=== PATIENT | female | born 1985 | race Caucasian/White ===

== ENCOUNTER 2016-11-06 16:34 | Emergency (ER) | payer MEDICAID ==
[~2016-11-06] VITALS: Ht 167.6 cm; Wt 75.0 kg
[2016-11-06 16:43] VITALS: Ht 167.6 cm; Wt 75.0 kg
[2016-11-06 19:15] VITALS: BP 111/76; PULSE 76; RESP 20; TEMP 98.3
--- NOTE | 2016-11-06 21:48 | ERD ---
ER Documentation Chief Complaint Date/Time DATE: 11/06/16 TIME: 21:45 Chief Complaint 10 WEEKS ,NO FHT PER ULTRASOUND AT OB OFFICE HPI 31-year-old female patient who is a presents to the ED no significant past medical history and is requesting for a dilatation and curettage. States that her LITIGATION ATTORNEY is Dr. Bryan. Reports that her last menses was on July 15, 2016. States that she was just at [facility] and was diagnosed with a demise. Reports that she has some slight lower abdominal pain that she describes as achy. Rates the pain a 8 out of 10. States that she is nauseous but denies any vomiting. Denies any vaginal bleeding, vaginal discharge, dysuria, urgency, frequency, diarrhea, chest pain, shortness of breath. ROS All systems reviewed and are negative except as per history of present illness. Allergies Allergies: Coded Allergies: No Known Allergy (Unverified , 11/06/16) PMhx/Soc Medical and Surgical Hx: pt denies Medical Hx, pt denies Surgical Hx Hx Alcohol Use: No Hx Substance Use: No Hx Tobacco Use: No Smoking Status: Never smoker Physical Exam Vitals Vital Signs Date Time Temp Pulse Resp B/P Pulse Ox O2 Delivery O2 Flow Rate FiO2 11/06/16 19:15 98.3 76 20 111/76 100 Room Air 11/06/16 16:43 99.2 86 18 117/59 98 Physical Exam Const: [id number], well-nourished. In no acute distress. Head: Atraumatic, normocephalic Eyes: Normal Conjunctiva without injection. No purulent discharge. ENT: Normal external ear, nose. Moist oropharynx without tonsillar exudates. Non -erythematous pharynx. Uvula midline. No drooling. No trismus. Neck: No cervical midline tenderness. Full range of motion. No meningismus. No cervical lymphadenopathy. No JVD. Resp: Clear to auscultation bilaterally. No wheezing, rhonchi, rales, or crackles. No accessory muscle use. No retractions. Cardio: Regular rate and rhythm. No murmurs, rubs or gallops. Abd: Soft, slight right and left lower abdominal tenderness, non distended. Normal bowel sounds. No palpable masses. No rebound tenderness. No guarding. Negative McBurney's point. Negative psoas sign. Negative obturator sign. Skin: No petechiae or rashes Back: No midline tenderness. No CVA tenderness. Ext: No cyanosis, or edema. Neur: Awake and alert. Normal gait. Normal coordination. Psych: Normal Mood and Affect Procedures/MDM 31-year-old female patient with no significant past medical history is a presents to the ED with a diagnosis of demise at [facility]. Patient is afebrile nontoxic appearing. Patient has normal vital signs. Patient is requesting for a dilatation and curettage at this time. Dr. Bryan , patient's LITIGATION ATTORNEY was consulted and he stated that patient can follow-up with the [facility] in [place] or [facility] for further evaluation and treatment. No indication for a full workup at present hospital no indication for a workup at this time. Low suspicion for symptomatic anemia, ectopic , sepsis, PID, appendicitis, ovarian torsion, tubo-ovarian abscess or other emergent conditions. Patient is to return sooner to the ED for any worsening symptoms. Patient's questions were answered. Patient understood and agreed with discharge plan. Departure Diagnosis: Primary Impression: Pelvic pain during Condition: Stable Patient Instructions: Dilation and Curettage (D and C) Referrals: COMMUNITY CLINICS YOU HAVE RECEIVED A MEDICAL SCREENING EXAM AND THE RESULTS INDICATE THAT YOU DO NOT HAVE A CONDITION THAT REQUIRES URGENT TREATMENT IN THE EMERGENCY DEPARTMENT. FURTHER EVALUATION AND TREATMENT OF YOUR CONDITION CAN WAIT UNTIL YOU ARE SEEN IN YOUR DOCTORS OFFICE WITHIN THE NEXT 1-2 DAYS. IT IS YOUR RESPONSIBILITY TO MAKE AN APPOINTMENT FOR FOLOW-UP CARE. IF YOU HAVE A PRIMARY DOCTOR --you should call your primary doctor and schedule an appointment IF YOU DO NOT HAVE A PRIMARY DOCTOR YOU CAN CALL OUR PHYSICIAN REFERRAL HOTLINE AT IF YOU CAN NOT AFFORD TO SEE A PHYSICIAN YOU CAN CHOSE FROM THE FOLLOWING [facility] CLINICS [facility] [address] [facility] [address] [facility]. [facility] [address] [facility] [address] [facility] [address] [facility]. [facility] [address] [facility]. [facility] YOU HAVE RECEIVED A MEDICAL SCREENING EXAM AND THE RESULTS INDICATE THAT YOU DO NOT HAVE A CONDITION THAT REQUIRES URGENT TREATMENT IN THE EMERGENCY DEPARTMENT. FURTHER EVALUATION AND TREATMENT OF YOUR CONDITION CAN WAIT UNTIL YOU ARE SEEN IN YOUR DOCTORS OFFICE WITHIN THE NEXT 1-2 DAYS. IT IS YOUR RESPONSIBILITY TO MAKE AN APPOINTMENT FOR FOLOW-UP CARE. IF YOU HAVE A PRIMARY DOCTOR --you should call your primary doctor and schedule and appointment IF YOU DO NOT HAVE A PRIMARY DOCTOR YOU CAN CALL OUR PHYSICIAN REFERRAL HOTLINE AT . IF YOU CAN NOT AFFORD TO SEE A PHYSICIAN YOU CAN CHOSE FROM THE FOLLOWING [facility] INSTITUTIONS: [facility] [address] [place] [address] [facility] [address] [place] [address] [facility] + [facility] [address] [place] [address] [facility] Hours: 8:00 am - 5:00 pm Additional Instructions: [facility] [id number] [facility] [address], [place] [address] Visite a scott mdico maana para un EXAMEN y seguimiento con los asociados de planificacin familiar o paternidad planificada para la dilatacin y Curretage. Regrese a estas instalaciones si no se mejora zaheer esperbamos o zaheer le dijimos. DAKOTA BRODERICK PA-C Nov 06, 2016 21:48 Regrese a estas instalaciones si no se mejora zaheer esperbamos o zaheer le dijimos. DAKOTA BRODERICK PA-C Nov 06, 2016 21:48
== END 2016-11-06 19:20 | disposition home or self-care (01) ==
LOC: FTE 16:34
DX: O26.891 Other specified pregnancy related conditions, first trimester (principal); R10.2 Pelvic and perineal pain; Z3A.10 10 weeks gestation of pregnancy
CPT/HCPCS: 99282

== ENCOUNTER 2018-09-16 13:24 | Inpatient (IN) | payer MEDICAID ==
[~2018-09-16] VITALS: Ht 167.6 cm; Wt 107.2 kg
[2018-09-16 14:33] VITALS: BP 110/55; PULSE 105; RESP 18
[2018-09-16 18:50] VITALS: Ht 167.6 cm; Wt 107.2 kg
[2018-09-16] MEDS ORDERED: MISOPROSTOL 200 MCG TAB PR PRN ×3 (19:00→21:30)
[2018-09-16] MEDS ORDERED: OXYTOCIN 30 UNITS/LR 500 ML IV PRN ×2 (19:00)
[2018-09-16] MEDS ORDERED: CEFAZOLIN 2 GM/50 ML (PMX) 50 ML IVPB SCH (19:00)
[2018-09-16] MEDS ORDERED: CARBOPROST 250 MCG INJ IM PRN ×2 (19:00)
[2018-09-16] MEDS ORDERED: OXYTOCIN 30 UNITS/LR 500 ML IV SCH (19:00)
[2018-09-16] MEDS ORDERED: METHYLERGONOVINE 0.2 MG INJ IM PRN ×2 (19:00)
[2018-09-16] MEDS: LACTATED RINGER'S 1,000 ML IV SCH (19:04)
--- NOTE | 2018-09-16 19:41 | PREAC ---
Date/Time of Note Date/Time of Note DATE: 09/16/18 TIME: 19:40 Anesthesia Eval and Record Evaluation Time Pre-Procedure Interview DATE: 09/16/18 TIME: 19:40 Age 33 Sex female NPO: 8 hrs Preoperative diagnosis Planned procedure repeat c/s Past Medical History Past Medical History: Includes GI: Obesity Surgery & Anesthesia Issues No known issue Meds Anticoagulation: No Beta Mandeep within 24 hr: No Reason Beta Mandeep not given: Pt. not on B-Mandeep Current Medications Oxytocin/Lactated Ringer's 500 ml @ 0 mls/hr ONCE PRN IV .VAGINAL BLEEDING; Start 09/16/18 at 19:00 Methylergonovine Maleate (Methergine) 0.2 mg ONCE PRN IM .VAGINAL BLEEDING; Start 09/16/18 at 19:00 Carboprost Tromethamine (Hemabate) 250 mcg ONCE PRN IM .VAGINAL BLEEDING; Start 09/16/18 at 19:00 Misoprostol (Cytotec) 1,000 mcg ONCE PRN FL .VAGINAL BLEEDING; Start 09/16/18 at 19:00 Lactated Ringer's 1,000 ml @ 125 mls/hr Q8H IV Last administered on 09/16/18at 19:04; Admin Dose 125 MLS/HR; Start 09/16/18 at 18:48 Cefazolin Sodium/ Dextrose 50 ml @ 100 mls/hr ONCE IVPB ; Start 09/16/18 at 19:00 Oxytocin/Lactated Ringer's 500 ml @ 125 mls/hr POST IV ; Start 09/16/18 at 19:00 Oxytocin/Lactated Ringer's 500 ml @ 0 mls/hr ONCE PRN IV .VAGINAL BLEEDING; Start 09/16/18 at 19:00 Methylergonovine Maleate (Methergine) 0.2 mg ONCE PRN IM .VAGINAL BLEEDING; Start 09/16/18 at 19:00 Carboprost Tromethamine (Hemabate) 250 mcg ONCE PRN IM .VAGINAL BLEEDING; Start 09/16/18 at 19:00 Misoprostol (Cytotec) 1,000 mcg ONCE PRN FL .VAGINAL BLEEDING; Start 09/16/18 at 19:00 Meds reviewed: Yes Allergies Coded Allergies: No Known Allergy (Unverified , 09/16/18) Allergies Reviewed: Yes Labs/Studies Labs Reviewed: Reviewed by anesthesiologist Result Diagram: 09/16/18 1730 Laboratory Tests 09/16/18 17:30 test: Positive Pre-procedure Exam Last vitals Vital Signs Date Temp Pulse Resp B/P (MAP) Pulse Ox O2 O2 Flow FiO2 Time Delivery Rate 09/16/18 98.0 105 18 110/55 Room Air 14:33 (73) Airway: Adequate mouth opening, Adequate thyromental dist Mallampati: Mallampati II Teeth: Normal Lung: Normal Heart: Normal ASA Physical Status ASA physical status: 2 Emergency: None Planned Anesthetic Neuraxial: Spinal Planned Pain Management Sub-arachniod narcotics Pre-operative Attestations Prior to commencing anesthesia and surgery, the patient was re-evaluated, there was verification of: *The patient's identity *The results of appropriate recent lab work and preoperative vital signs *The above evaluation not changing prior to induction *Anesthetic plan, risk benefits, alternative and complications discussed with patient/family; questions answered; patient/family understands, accepts and wishes to proceed. JAKE KAPLAN Sep 16, 2018 19:40
[2018-09-16] MEDS ORDERED: ONDANSETRON 4 MG INJ IV STA (19:47)
--- NOTE | 2018-09-16 19:58 | HP ---
Date/Time of Note Date/Time of Note DATE: 09/16/18 TIME: 19:56 OB - History Hx of Present Free Text/Dictation 33-year-old 3 para 2 with at 37 weeks and 3 days with due date of October 05, 2018. She reports turning around to be complaining of painful uterine contractions. She received IV hydration but she continues to have painful uterine contractions. She desires to have a repeat delivery. I discussed with the patient the risks, benefits, indications, and alternatives of procedure including but not limited to risks of infection, bleeding, damage to other organs, bowel, bladder, hernia formation, scar formation, possibility of blood transfusion, possible need for emergency hysterectomy. She was allowed to ask questions. All her questions were answered. Informed consent has been obtained. Care: Good Care Ultrasounds: Normal mid trimester US Obstetrical Complications: None Medical Complications: None Past Family/Social History * Past Medical, Surgical, Family and Obstetric Histories reviewed from chart. OB Admission Exam Vital Signs Vital Signs Vital Signs Date Temp Pulse Resp B/P (MAP) Pulse Ox O2 O2 Flow FiO2 Time Delivery Rate 09/16/18 98.0 105 18 110/55 Room Air 14:33 (73) Physical Exam HEENT: WNL Heart: Rhythm Normal Lungs: Clear, Equal Abdomen: WNL Extremities: Normal Reflexes: Normal Cervical Dilatation: Fingertip Last 72 hours Lab Results CBC & BMP 09/16/18 17:30 OB Assessment/Plan Other Assessment: at 37 weeks and 3 days. History of previous delivery. Desires repeat delivery. Early labor. Plan: Section STEVE BERNAL MD Sep 16, 2018 19:58
[2018-09-16] MEDS ORDERED: ALBUTEROL 0.083% (NEB) 2.5 MG/3 ML AMP HHN PRN (20:00)
[2018-09-16] MEDS ORDERED: METOCLOPRAMIDE 10 MG INJ IV PRN (20:00)
[2018-09-16] MEDS ORDERED: KETOROLAC 30 MG INJ IV PRN (20:00)
[2018-09-16] MEDS ORDERED: HYDROmorphONE 1 MG/5 ML IV SYRINGE IV PRN ×3 (20:00)
[2018-09-16] MEDS ORDERED: METOCLOPRAMIDE 10 MG INJ IV ONE (20:00)
[2018-09-16] MEDS ORDERED: DIPHENHYDRAMINE 50 MG INJ IV PRN ×2 (20:00)
[2018-09-16] MEDS ORDERED: HYDROmorphONE 0.5 MG/0.5 ML SYG IV PRN ×2 (20:00)
[2018-09-16] MEDS ORDERED: FENTAnyl 50 MCG/ML VIAL IV PRN ×3 (20:00)
[2018-09-16] MEDS ORDERED: NALOXONE (0.4 MG/ML) INJ IV PRN (20:00)
[2018-09-16] MEDS ORDERED: ONDANSETRON 4 MG INJ IV PRN ×2 (20:00)
[2018-09-16] MEDS ORDERED: CITRIC ACID/NA CITRATE 30 ML CUP PO ONE (20:00)
[2018-09-16] MEDS ORDERED: OXYTOCIN 30 UNITS/LR 500 ML BAG IV ONE (20:18)
[2018-09-16] MEDS ORDERED: morphine SULFATE/PF (10 MG/10 ML) INJ ONE (20:18)
[2018-09-16] MEDS ORDERED: PHENYLephrine (100 MCG/ML) 10ML SYG ONE (20:18)
[2018-09-16] MEDS ORDERED: LACTATED RINGER'S 1,000 ML IV SCH (21:04)
--- NOTE | 2018-09-16 21:04 | OPR ---
Date/Time of Note Date/Time of Note DATE: 09/16/18 TIME: 21:01 Operative Report Procedure Date: Sep 16, 2018 Preoperative Diagnosis IUP 37.3 weeks Early Labor Desires Repeat Delivery Postoperative Diagnosis Same Operation/Procedure Performed Repeat Delivery Surgeon see signature line Crystallizer Operator MS Kimmie MD Anesthesia Type: spinal Estimated Blood Loss: other (700 ml) Transfusion none Specimen none Grafts/Implants none Tubes/Drains Chaves Complications none Pt Condition Post Procedure: stable Disposition: PACU Procedure Description The risks, benefits, indications, alternatives of procedure including, but not limited to risk of infection, bleeding, damage to other organs, bowel, bladder, hernia formation, scar formation, possibility of blood transfusions discussed with patient. She was allowed to ask questions. All her questions were answered. Informed consent was obtained. DESCRIPTION OF PROCEDURE: She was taken to the operating room. Spinal anesthesia was induced. She was prepped and draped in the usual sterile fashion. Surgical time out one. Anesthesia was tested to be adequate. With permission f [facility] anesthesiologist, a knife was used to make a Pfannenstiel skin incision. The incision was taken down in layers. The fascia was cut, undermined and from the underlying muscle using sharp and blunt dissection. All the bleeders were cauterized. Peritoneum was entered bluntly. A low transverse incision was developed over the uterus. Amniotic fluid was clear and adequate. A viable in vertex presentation was delivered without any difficulty. The cord was clamped and cut, handed to awaiting team. Placenta was then delivered. Uterus was exteriorized, wrapped around a moist lap. Inside uterus was cleaned using a dry lap. All residual membranes were removed. The uterine incision was then closed using #1 Monocryl in 2 layers. The uterus was inserted back inside the abdominal cavity. Irrigation was done carefully. Careful evaluation of the uterine incision revealed no further bleeding. The peritoneum and rectus muscles and fascia were evaluated. All bleeders cauterized. Peritoneum was closed using 2-0 Monocryl. At this time, the count was correct. Rectus muscle was reapproximated using 2-0 Monocryl. Rectus fascia was closed using #1 Vicryl. Subcutaneous tissue was cleaned and irrigated. All bleeders cauterized and the skin closed using Insorb. All counts correct. STEVE BERNAL MD Sep 16, 2018 21:04
[2018-09-16] MEDS ORDERED: NA PHOSPHATE/BIPHOS 133 ML ENEMA PR PRN (21:30)
[2018-09-16] MEDS ORDERED: LANOLIN HPA 1 PKT TOP PRN (21:30)
[2018-09-17 00:05] VITALS: BP 114/57; PULSE 66; RESP 19
[2018-09-17 04:53] VITALS: BP 103/54; PULSE 85; RESP 18
[2018-09-17 07:45] VITALS: BP 97/53; PULSE 72; RESP 17
--- NOTE | 2018-09-17 08:05 | QN ---
Documentation Comment s/p c/s Subjective: no complaint Objective: Afebrile, VSS NAD A&O Abdomen: soft, appropriate tender Incision: no sign of bleeding/infection mild lochia Extremity: 1+ edema bilaterally Assessment: S/p C/S postop day #1 Recovering Well Plan: current care STEVE BERNAL MD Sep 17, 2018 08:05
[2018-09-17] MEDS: SENNA/DOCUSATE NA (8.6MG/50MG) TAB PO SCH ×2 (09:26→21:24)
[2018-09-17] MEDS: KETOROLAC 30 MG INJ IV PRN ×2 (09:36→15:27)
[2018-09-17] MEDS: LACTATED RINGER'S 1,000 ML IV SCH ×2 (10:48→11:04)
[2018-09-17 12:00] VITALS: BP 98/52; PULSE 76; RESP 16
[2018-09-17 15:30] VITALS: BP 94/51; PULSE 74; RESP 17
[2018-09-17 19:45] VITALS: BP 101/54; PULSE 84; RESP 19
[2018-09-17] MEDS ORDERED: OXYCODONE/ACETAMINOPHEN (5/325) TAB PO PRN (20:00)
[2018-09-17] MEDS: OXYCODONE/ACETAMINOPHEN (5/325) TAB PO PRN (22:03)
[2018-09-17] MEDS: IBUPROFEN 600 MG TAB PO SCH (23:44)
--- NOTE | 2018-09-18 00:01 | DELSUM ---
Delivery Summary A-C Datetime Report Generated by CPN: 09/18/2018 00:01 DELIVERY PERSONNEL Manager E Commerce: [place], LAKEISHA MATERNAL INFORMATION Delivery Anesthesia: Spinal Medications in Delivery: SEE ANESTHESIA RECORD Delivery QBL (ml): 700 Placenta Cultured: No Maternal Complications: Other Other Maternal Complications: IN LABOR, GDM DIET CONTROLLED LABOR SUMMARY EDC: 10/04/2018 00:00 No. Babies in Womb: 1 Attempted: No Labor Anesthesia: None LABOR INFORMATION Reason for Induction: Not Applicable Group B Beta Strep: Negative Antibiotics # of Doses: 1 Antibiotics Time of Last Dose: 09/16/2018 20:31 Steroids Given: None Reason Steroids Not Administered: Not Applicable MEMBRANES Membranes Rupture Method: Artificial Rupture of Membranes: 09/16/2018 20:43 Length of Rupture (hr): 0.00 Amniotic Fluid Color: Clear Amniotic Fluid Amount: Moderate Amniotic Fluid Odor: None STAGES OF LABOR Stage 3 hr: 0 Stage 3 min: 1 CSECTION DELIVERY Primary Indication: Repeat Elective CSection Urgency: Non Elective CSection Incidence: Repeat Labor: Labor Elective: Nonelective CSection Incision: Lower Uterine Transverse BABY A INFORMATION Delivery Date/Time: 09/16/2018 20:43 Method of Delivery: Born in Route : No : N/A Forceps: N/A Vacuum Extraction: N/A Shoulder Dystocia : N/A SHOULDER DYSTOCIA BABY A Delivery Date/Time: 09/16/2018 20:43 PRESENTATION/POSITION BABY A Presentation: Cephalic Cephalic Presentation: Vertex Breech Presentation: N/A PLACENTA INFORMATION BABY A Placenta Delivery Time : 09/16/2018 20:44 Placenta Method of Delivery: Manual Removal Placenta Status: Delivered SCORES BABY A Heart Rate 1 min: >100 bpm Resp Effort 1 min: Good Cry Reflex Irritability 1 min: Cough/Sneeze/Pulls Away Muscle Tone 1 min: Active Motion Color 1 min: Body [place], Extremit Blue Resuscitation Effort 1 min: Tactile Stimulation SCORE 1 MIN: 9 Heart Rate 5 min: >100 bpm Resp Effort 5 min: Good Cry Reflex Irritability 5 min: Cough/Sneeze/Pulls Away Muscle Tone 5 min: Active Motion Color 5 min: Body [place], Extremit Blue Resuscitation Effort 5 min: Tactile Stimulation SCORE 5 MIN: 9 INFANT INFORMATION BABY A Gestational Age at Delivery: 37.3 Gestational Status: Early Term- 37- 38.6 Weeks Outcome : Liveborn, with signs of life Infant Condition : Stable Infant Sex: Female IDENTIFICATION/MEDS BABY A ID Band Number: [id number] ID Band Location: Right Leg; Left Arm Sensor Applied: Yes Sensor Number: [id number] Sensor Location : Cord Clamp Vitamin K Given : Not Given Erythromycin Given: Not Given WEIGHT/LENGTH BABY A Birthweight (gm): 3130 Infant Weight (lb): 6 Infant Weight (oz): 14 Infant Length (in): 20.00 Infant Length (cm): 50.80 CORD INFORMATION BABY A No. Cord Vessels: 3 Nuchal Cord : N/A Cord Blood Taken: Yes Suction: Mouth; Nose ASSESSMENT BABY A Complications: None Physical Findings at Delivery: Within Normal Limits Infant Respirations: Appears Normal Voicer/ALS Called : Yes Infant Care By: RT/RN Transferred To: Remains with Mother
[2018-09-18 03:20] VITALS: BP 105/52; PULSE 73; RESP 21
[2018-09-18] MEDS: OXYCODONE/ACETAMINOPHEN (5/325) TAB PO PRN (03:20)
[2018-09-18] MEDS: IBUPROFEN 600 MG TAB PO SCH ×3 (05:37→17:34)
[2018-09-18 08:56] VITALS: BP 105/53; PULSE 72; RESP 16
[2018-09-18] MEDS: SENNA/DOCUSATE NA (8.6MG/50MG) TAB PO SCH ×2 (09:49→21:00)
--- NOTE | 2018-09-18 11:44 | PAC ---
Date/Time of Note Date/Time of Note DATE: 09/18/18 TIME: 11:44 Post-Anesthesia Notes Post-Anesthesia Note Last documented vital signs Vital Signs Date Temp Pulse Resp B/P (MAP) Pulse Ox O2 O2 Flow FiO2 Time Delivery Rate 09/18/18 98.2 72 16 105/53 Room Air 08:56 (70) 09/17/18 96 19:45 Activity: WNL Respiratory function: WNL Cardiovascular function: WNL Mental status: Baseline Pain reasonably controlled: Yes Hydration appropriate: Yes Nausea/Vomiting absent: Yes JAKE KAPLAN Sep 18, 2018 11:44
--- NOTE | 2018-09-18 14:55 | QN ---
Documentation Comment Postop day #2 Status post repeat Patient stable and afebrile Positive flatus and voiding and tolerating regular diet and ambulating Vital signs stable VS - Last 72 Hours, by Label Date Temp Pulse Resp B/P (MAP) Pulse Ox O2 O2 Flow FiO2 Time Delivery Rate 09/18/18 98.2 72 16 105/53 Room Air 08:56 (70) 09/18/18 98.0 73 21 105/52 Room Air 03:20 (69) 09/17/18 98.5 84 19 101/54 96 Room Air 19:45 (70) 09/17/18 98.6 74 17 94/51 (65) 95 Room Air 15:30 09/17/18 98.2 76 16 98/52 (67) 96 Room Air 12:00 09/17/18 98.3 72 17 97/53 (68) 95 Room Air 07:45 09/17/18 98.6 85 18 103/54 97 Room Air 04:53 (70) 09/17/18 98.0 66 19 114/57 Room Air 00:05 (76) 09/16/18 98.0 105 18 110/55 Room Air 14:33 (73) Hematology - 72 Hrs Test 09/16/18 17:30 09/17/18 04:30 Hematocrit 38.3 % (37.0-47.0) 36.5 % (37.0-47.0) L Hemoglobin 12.6 g/dl (12.0-16.0) 12.1 g/dl (12.0-16.0) Mean Corpuscular 29.4 pg (29.0-33.0) 29.9 pg (29.0-33.0) Hemoglobin Mean Corpuscular 32.9 g/dl (32.0-37.0) 33.2 g/dl (32.0-37.0) Hemoglobin Concent Mean Corpuscular Volume 89.5 fl (82.0-101.0) 90.1 fl (82.0-101.0) Mean Platelet Volume 9.8 fl (7.4-10.4) 10.0 fl (7.4-10.4) Platelet Count 250 10^3/UL (140-415) 228 10^3/UL (140-415) Red Blood Count 4.28 10^6/ul (4.20-5.40) 4.05 10^6/ul (4.20-5.40) L Red Cell Distribution 14.5 % (11.5-14.5) 14.1 % (11.5-14.5) Width White Blood Count 7.7 10^3/ul (4.8-10.8) 10.1 10^3/ul (4.8-10.8) # Abdomen soft, fundus firm Incision clean,dry,intact Extremities nontender Assessment and plan Patient stable and doing well Encouraged to ambulate Continue with routine postop care BLAINE ABDUL MD Sep 18, 2018 14:55
[2018-09-18] MEDS ORDERED: BISACODYL 10 MG SUPP PR ONE (15:00)
[2018-09-18 16:30] VITALS: BP 112/57; PULSE 75; RESP 18
[2018-09-18 19:35] VITALS: BP 112/56; PULSE 76; RESP 18
[2018-09-18] MEDS: DOCUSATE SODIUM 100 MG CAP PO SCH (21:00)
[2018-09-19] MEDS: IBUPROFEN 600 MG TAB PO SCH ×3 (00:44→11:51)
[2018-09-19 04:25] VITALS: BP 99/52; PULSE 69; RESP 18
[2018-09-19 07:45] VITALS: BP 98/56; PULSE 69; RESP 16
[2018-09-19] MEDS ORDERED: DIPHTH/TET/ACEL PERTUSS (ADULT) 0.5 ML VIAL IM* ONE (09:00)
[2018-09-19] MEDS: DOCUSATE SODIUM 100 MG CAP PO SCH (09:00)
[2018-09-19] MEDS ORDERED: MEASLES,MUMPS,RUBELLA VACCINE INJ SC* ONE (09:00)
[2018-09-19] MEDS: SENNA/DOCUSATE NA (8.6MG/50MG) TAB PO SCH (09:00)
--- NOTE | 2018-09-19 13:21 | DS ---
Date/Time of Note Date/Time of Note DATE: 09/19/18 TIME: 13:20 Obstetrical Discharge Record Final Diagnosis Final Diagnosis: Term delivered Other Final Diagnosis Patient is 37 weeks early labor underwent repeat delivery. Postoperative care was uneventful. She remained afebrile with vital signs remained stable. She is ambulating well tolerating regular diet. Mild lochia. Good pain control on oral pain medications. I provided patient prescription for pain medications for home [place] No. 30 and Motrin 800 mg #60 Section Section: Repeat Complications Augmentation: No Induction: No Rupture of Membranes: No Condition on Discharge Physical Assessment Voiding: Yes Bowel Movement: Yes Breast: Soft, non-tender, Filling Fundus: Firm Abdomen and Incision: Soft appropriate tenderness. Incision is clean dry and intact without any sign of infection. Calf Tenderness: No Patient Condition: Good STEVE BERNAL MD Sep 19, 2018 13:21
== END 2018-09-19 15:35 | disposition home or self-care (01) | DRG 788 ==
LOC: OBT 13:24 → L-D 13:25 → OBT 18:30 → L-D 20:13 → MS1 23:52
PROVIDERS: ADMIT Specialist; ATTEND Specialist
PROC: 10D00Z1 Extraction of Products of Conception, Low, Open Approach (ICD-10-PCS; principal; 2018-09-16 20:15)
DX: O34.211 Maternal care for low transverse scar from previous cesarean delivery (principal); Z3A.37 37 weeks gestation of pregnancy; Z37.0 Single live birth
CPT/HCPCS: 36415; 85025; 85610; 85730; 86592; 86850; 86900; 86901; 87340; 90715; 96360; 99464; G0463; J0690; J1885; J2274; J2370; J2405; J2590; J2765; J7120